=== PATIENT | female | born 1960 | race Asian ===

== ENCOUNTER 2024-11-23 09:55 | Inpatient (IN) | payer MEDICAID, OTHER ==
[~2024-11-23] VITALS: Ht 160 cm; Wt 52.6 kg
[2024-11-23 10:29] LABS: PLATELET COUNT (AUTO) 126 K/uL (179-408); RED BLOOD CELL COUNT(AUTO) 2.96 MIL/uL (3.63-4.92); RED CELL DISTRIBUTION WIDTH 15.2 % (12.3-17.7); WHITE BLOOD COUNT (AUTO) 5.5 K/uL (3.8-11.8)
[2024-11-23] MEDS: IV NORMAL SALINE 1000 ML BAG IV ONE (11:07)
[2024-11-23 11:09] LABS: ASPARTATE AMINOTRANSFERASE 26 U/L (15-37); CREATININE 0.7 mg/dL (0.6-1.3); SODIUM SERUM 133 mmol/L (136-145); TOTAL PROTEIN, SERUM 6.9 g/dL (6.4-8.2); UREA NITROGEN, BLOOD 9 mg/dL (7-18)
[2024-11-23 11:30] LABS: *BILIRUBIN,URIN NEGATIVE (NEGATIVE); *BLOOD, URINE NEGATIVE (NEGATIVE); *CLARITY,URINE CLEAR (CLEAR); *COLOR,URINE YELLOW (YELLOW); *KETONES,URINE NEGATIVE (NEGATIVE); *PROTEIN,URINE NEGATIVE (NEGATIVE); *UROBILINOGEN,URINE 1.0 E.U./dl (NORMAL); LEUKOCYTE ESTERASE ,URINE NEGATIVE (NEGATIVE); NITRITE, URINE NEGATIVE (NEGATIVE); UGLUCOSE NEGATIVE (NEGATIVE)
[2024-11-23] MEDS ORDERED: CEFTRIAXONE /D5W 50ML IVPB **ER PYXIS IV ONE (11:32)
[2024-11-23] MEDS ORDERED: AZITHROMYCIN 250 MG TABLET ONE (11:32)
[2024-11-23] MEDS: AZITHROMYCIN 250 MG TABLET PO ONE (11:33)
[2024-11-23] MEDS ORDERED: FAMO20TA8 PO (12:24)
[2024-11-23] MEDS ORDERED: RISP4TAB70 PO (12:24)
[2024-11-23] MEDS ORDERED: HALO5TAB PO (12:24)
[2024-11-23] MEDS ORDERED: METO-295 PO (12:24)
[2024-11-23] MEDS ORDERED: MONT10TA33 PO (12:24)
[2024-11-23] MEDS ORDERED: PANT40TA49 PO (12:24)
[2024-11-23] MEDS ORDERED: ONDA-104 PO (12:24)
[2024-11-23] MEDS ORDERED: VALP250S4 PO (12:24)
[2024-11-23] MEDS ORDERED: ALBU2SYR3 PO (12:24)
[2024-11-23 15:00] VITALS: BP 103/65
[2024-11-23] MEDS ORDERED: MELA5TAB PO (16:44)
[2024-11-23] MEDS ORDERED: ALBU8.5H8 IH (16:44)
[2024-11-23] MEDS ORDERED: MULT-594 PO (16:44)
[2024-11-23 17:00] VITALS: BP 132/54; TEMP 98.3; O2SAT 94
[2024-11-23] MEDS ORDERED: ONDANSETRON 4 MG/2 ML VIAL IV PRN (18:30)
[2024-11-23] MEDS ORDERED: ALBUTEROL SULFATE 8 GM HFA.AER.AD IH PRN (18:30)
[2024-11-23] MEDS ORDERED: ACETAMINOPHEN 325 MG TABLET PO PRN (18:30)
[2024-11-23] MEDS ORDERED: MAGNESIUM HYDROXIDE 30 ML LIQUID UDC PO PRN (18:30)
[2024-11-23] MEDS ORDERED: ALBUTEROL SULFATE 2.5 MG/3 ML NEBU NEB PRN (18:30)
[2024-11-23 19:00] VITALS: BP 122/62; TEMP 98.5; O2SAT 98
[2024-11-23] MEDS: HALOPERIDOL 5 MG TABLET PO SCH (21:08)
[2024-11-23] MEDS: DOCUSATE SODIUM 100 MG CAPSULE PO SCH (21:08)
[2024-11-23] MEDS: MELATONIN 3 MG TABLET PO SCH (21:08)
[2024-11-24] VITALS (7 sets, daily range): BP systolic 100–130; BP diastolic 51–71; TEMP 97.6–98.9; O2SAT 95–98
[2024-11-24 06:51] LABS: PLATELET COUNT (AUTO) 143 K/uL (179-408); RED BLOOD CELL COUNT(AUTO) 2.86 MIL/uL (3.63-4.92); RED CELL DISTRIBUTION WIDTH 15.1 % (12.3-17.7); WHITE BLOOD COUNT (AUTO) 4.4 K/uL (3.8-11.8)
[2024-11-24 07:14] LABS: IRON, SERUM 53.0 ug/dL (50-175)
[2024-11-24 07:41] LABS: ASPARTATE AMINOTRANSFERASE 22.0 U/L (15-37); CREATININE 0.5 mg/dL (0.6-1.3); SODIUM SERUM 138.0 mmol/L (136-145); TOTAL PROTEIN, SERUM 6.6 g/dL (6.4-8.2); UREA NITROGEN, BLOOD 7.0 mg/dL (7-18)
[2024-11-24 08:46] LABS: EOSINOPHILS % (MANUAL) 3 % (0-8); LYMPHOCYTES % (MANUAL) 33 % (20-40); MONOCYTES % (MANUAL) 16 % (2-10); NEUTROPHILS % (MANUAL) 48 % (42-75); PLATELET ESTIMATE DECREASED
[2024-11-24] MEDS: FAMOTIDINE 20 MG TABLET PO SCH (08:49)
[2024-11-24] MEDS: VALPROIC ACID 250 MG/5 ML LIQUID UDC PO SCH (08:49)
[2024-11-24] MEDS: MULTIVITAMINS,THERAPEUTIC TABLET PO SCH (08:50)
[2024-11-24] MEDS: MONTELUKAST SODIUM 10 MG TABLET PO SCH (08:50)
[2024-11-24] MEDS: MOMETASONE/FORMOTEROL 8.8 GM HFA.AER.AD IH SCH (08:53)
[2024-11-24] MEDS ORDERED: Medication Not On Formulary EA (Multivitamins (Multivitamin) 1 EACH) PO SCH (09:00)
[2024-11-24] MEDS ORDERED: FLUTICASONE/SALMETEROL 250/50 INHALER INH SCH (09:00)
[2024-11-24] MEDS: AZITHROMYCIN IV 500 MG in IV DEXTROSE 5% 250 ML IV SCH (12:23)
[2024-11-25 06:45] VITALS: BP 107/55; TEMP 98.1; O2SAT 98
[2024-11-25 11:05] VITALS: BP 111/54; TEMP 97.8; O2SAT 97
[2024-11-25 15:03] VITALS: BP 124/61; TEMP 98.2; O2SAT 98
[2024-11-25] MEDS ORDERED: ACET325T53 PO (15:33)
[2024-11-25] MEDS ORDERED: AMOX-430 PO (15:33)
== END 2024-11-25 17:30 | DRG 48 ==
LOC: ER 09:55 → TELE3 16:20 → MEDSURG3 11-24 10:45
PROVIDERS: ADMIT Internal Medicine; ATTEND Internal Medicine
DX: G90.89 Other disorders of autonomic nervous system (principal); J96.91 Respiratory failure, unspecified with hypoxia; E43 Unspecified severe protein-calorie malnutrition; J18.9 Pneumonia, unspecified organism; C90.00 Multiple myeloma not having achieved remission; D69.6 Thrombocytopenia, unspecified; R00.1 Bradycardia, unspecified; E87.1 Hypo-osmolality and hyponatremia; E88.09 Other disorders of plasma-protein metabolism, not elsewhere classified; J44.0 Chronic obstructive pulmonary disease with (acute) lower respiratory infection; F03.92 Unspecified dementia, unspecified severity, with psychotic disturbance; G40.909 Epilepsy, unspecified, not intractable, without status epilepticus; Z90.49 Acquired absence of other specified parts of digestive tract; D53.9 Nutritional anemia, unspecified; F17.210 Nicotine dependence, cigarettes, uncomplicated; K21.9 Gastro-esophageal reflux disease without esophagitis; M15.9 Polyosteoarthritis, unspecified; R73.9 Hyperglycemia, unspecified
CPT/HCPCS: 36415; 70030-TC; 71045; 83550; 83605; 83735; 84100; 84155; 84165; 84166; 84443; 84484; 85025; 85730; 87040; 87086; 93307; A4606; A4663; G0378; J0456; J0696; J2919; J7040; J7050; Q0144